=== PATIENT | female | born 1995 | race Two or more races ===

== ENCOUNTER 2017-03-30 00:10 | Emergency (ER) | payer OTHER ==
[2017-03-30] MEDS ORDERED: Albuterol 2.5 MG/3 ML NEB.SOL* (0.083%) INH ONE (02:47)
[2017-03-30] MEDS ORDERED: Albuterol HFA INHALER* 8 gm MDI INH ONE (02:47)
[2017-03-30 04:31] VITALS: BP 125/84
--- NOTE | 2017-03-30 08:32 | ED ---
Austyn Lazcano Alok, scribed for Eric Salinas MD on 03/30/17 at 0306 . Allergic Reaction/Systemic - HPI Summary HPI Summary: 21 y/o female presents to the ED with SOB and chest heaviness when inhaling for the past three weeks. The pt has no h/o asthma and states her symptoms are consistent with seasonal allergies. Pt also c/o sore sore for the last three weeks and wheezing since 3 days ago. Pt has been taking Mahogany and Sudafed as well as a nasal spray to alleviate her symptoms. Pt denies fever. - History of Current Complaint Chief Complaint: EDUpperRespComplaint Time Seen by Provider: 03/30/17 02:40 Hx Obtained From: Patient Onset/Duration: Gradual Onset, Started weeks ago, Still Present Timing: Constant Severity Initially: Moderate Severity Currently: Moderate Pain Intensity: 0 Pain Scale Used: 0-10 Numeric Aggravating Factor(s): Other - Seasonal Alleviating Factor(s): OTC Meds - Mahogany, Sudafed, Nasal Elmer Associated Signs And Symptoms: Positive: Chest Pain - Heaviness, Cough Wheezing , Difficulty Breathing, Throat Tightening - soreness - Related Hx Possible Reaction To: Environmental Exposure - seasonal allergies - Allergies/Home Medications Allergies/Adverse Reactions: Allergies Allergy/AdvReac Type Severity Reaction Status Date / Time seasonal Allergy Difficulty Uncoded 03/30/17 00:33 Breathing/Wheezing PMH/Surg Hx/FS Hx/Imm Hx Respiratory History: Denies: Hx Asthma Infectious Disease History: No Infectious Disease History: Denies: Traveled Outside the [place] in Last 30 Days - Family History Known Family History: Negative: Diabetes - Social History Occupation: Student Alcohol Use: Rare Substance Use Type: Reports: None Smoking Status (MU): Never Smoked Tobacco Review of Systems Negative: Fever Positive: Sore Throat Positive: Chest Pain - heaviness Positive: Shortness Of Breath, Other - wheezing All Other Systems Reviewed And Are Negative: Yes Physical Exam Triage Information Reviewed: Yes Vital Signs On Initial Exam: Initial Vitals Temp Pulse Resp BP Pulse Ox 97.6 F 78 16 145/93 100 03/30/17 00:19 03/30/17 00:19 03/30/17 00:19 03/30/17 00:19 03/30/17 00:19 Vital Signs Reviewed: Yes Appearance: Positive: Well-Appearing, Pain Distress - mild respiratory distress Skin: Positive: Warm, Skin Color Reflects Adequate Perfusion, Dry Head/Face: Positive: Normal Head/Face Inspection Eyes: Positive: EOMI, DANNIELLE ENT: Positive: Pharyngeal erythema Neck: Positive: Supple, Nontender Respiratory/Lung Sounds: Positive: Clear to Auscultation, Breath Sounds Present Cardiovascular: Positive: RRR Abdomen Description: Positive: Nontender, Soft Bowel Sounds: Positive: Present Musculoskeletal: Positive: Normal, Strength/ROM Intact Neurological: Positive: Normal, Sensory/Motor Intact, Alert, Oriented to Person Place, Time Psychiatric: Positive: Affect/Mood Appropriate - Martha Coma Scale Coma Scale Total: 15 Diagnostics - Vital Signs Vital Signs Temp Pulse Resp BP Pulse Ox 03/30/17 02:17 97.9 F 72 16 124/91 98 03/30/17 01:10 97.6 F 70 16 130/86 100 03/30/17 00:19 97.6 F 78 16 145/93 100 - Laboratory Lab Results: Lab Results 03/30/17 Range/Units 02:25 Group A Strep Rapid Negative (Negative) Lab Statement: Any lab studies that have been ordered have been reviewed, and results considered in the medical decision making process. Re-Evaluation - Re-Evaluation First Eval Re-Evaluation Time: 03:59 Change: Improved Comment: Pt condition improved after albuterol nebulizer. Allergic Reaction Course/Dx - Course Course Of Treatment: NO CRITICAL CARE TIME. Assessment/Plan: IMPROVED IN ED WITH ALBUTEROL. DISCHARGE HOME STABLE. - Diagnoses Provider Diagnoses: Bronchospasm Discharge - Discharge Plan Condition: Stable Disposition: HOME Patient Education Materials: Bronchospasm (ED) Referrals: [facility] [Primary Care Provider] - Additional Instructions: FOLLOW UP WITH YOUR DOCTOR. RETURN TO THE EMERGENCY DEPARTMENT FOR ANY WORSENING OF YOUR CONDITION OR QUESTIONS OR CONCERNS. The documentation as recorded by the Austyn zaman Alok accurately reflects the service I personally performed and the decisions made by me, Eric Salinas MD.
== END 2017-03-30 04:08 | disposition home or self-care (01) ==
LOC: ED 00:10
DX: J98.01 Acute bronchospasm (principal); R07.9 Chest pain, unspecified; R05 Cough; R06.2 Wheezing; J02.9 Acute pharyngitis, unspecified; R06.02 Shortness of breath
CPT/HCPCS: 87651; 99283; A9270-GY